=== PATIENT | male | born 1990 | race Caucasian/White ===

== ENCOUNTER 2025-07-31 15:50 | Day surgery (SDC) | payer BC ==
[2025-07-31] MEDS ORDERED: BUPIVACAINE 0.5% VIAL IJ ONE (15:51)
[2025-07-31] MEDS ORDERED: methylPREDNISolone acetate IM ONE (15:51)
[2025-07-31] MEDS ORDERED: LIDOCAINE HCL 1% 50 MG/5 ML VL IJ ONE (15:51)
--- NOTE | 2025-07-31 20:48 | XRAY ---
Indication: Left shoulder and subacromial bursa injection. Intraoperative fluoroscopy provided for 15 seconds. 4 digital spot image submitted for interpretation demonstrates needle tip projecting over left glenohumeral joint superiorly. 2nd needle tip subacromial. Small amount of contrast injected for needle tip placement. Correlate with intraoperative findings/report.
--- NOTE | 2025-08-01 08:36 | XRAY ---
15 seconds of fluoroscopy was used in surgery for a left intra-articular shoulder and subacromial bursa injection.
== END 2025-07-31 18:10 | disposition home or self-care (01) ==
LOC: SDC-PAIN 15:50
PROVIDERS: ATTEND Psychiatry & Neurology Pain Medicine
DX: M19.012 Primary osteoarthritis, left shoulder (principal); M75.52 Bursitis of left shoulder; E11.9 Type 2 diabetes mellitus without complications